=== PATIENT | male | born 1980 | race Caucasian/White ===

== ENCOUNTER → 2020-03-12 10:01 | Outpatient (CLI) | payer OTHER, SELFPAY ==
[2020-03-14 09:33] LABS: HIV - WCH Non-Reactive (Nonreactive); Hepatitis B Surface Antigen Non-Reactive (Nonreactive); Hepatitis C Antibody Non-Reactive (Nonreactive)
[2020-03-17 04:30] LABS: Rapid Plasmin Reagin (RPR) NONREACTIVE (NONREACTIVE)
== END ==
PROVIDERS: Referring Provider Obstetrics & Gynecology Reproductive Endocrinology; Visit Provider Obstetrics & Gynecology Reproductive Endocrinology
DX: Z11.59 Encounter for screening for other viral diseases (principal); Z11.3 Encounter for screening for infections with a predominantly sexual mode of transmission; Z11.8 Encounter for screening for other infectious and parasitic diseases
CPT/HCPCS: 36415; 86592; 86703; 86803; 87340

== ENCOUNTER 2024-10-16 07:22 | Day surgery (SDC) | payer OTHER, SELFPAY ==
[2024-10-16] VITALS (8 sets, daily range): BP systolic 106–132; BP diastolic 71–86; PULSE 72–85; RESP 16; TEMP 36.3–36.4; O2SAT 95–99; BMI 33.5
--- NOTE | 2024-10-16 08:02 | PCM.PRE.AN2 ---
ASA Classification* ASA Classification ASA Classification: 2 Assessment & Plan Anesthesia* Anesthesia Assessment Anesthesia Assessment: Discussed sedation and/or anesthesia options, risks, benefits, and alternatives with patient/parents/legal guardian/POA. Questions invited. The patient/parents/legal guardian/POA seems to understand and agrees to proceed with anesthesia plan. Reviewed the physical assessment, medical history, allergy history and patient home medications list prior to surgery/procedure/anesthetic and documented any changes. Performed airway and anesthesia risk assessments. Anesthesia Type Anesthesia Type: MAC Anesthesia Focused Assessment* Temperature: 97.3 F Pulse Rate: 72 Blood Pressure: 132/86 Respiratory Rate: 16 Pulse Ox: 99 Airway Assessment Mouth opens: >3 cm Mallampati Score: II Focused Labs Anesthesia Preop lab: CBC CHEMISTRY COAG Pre-Assessment Diagnosis/Proposed Procedure Planned Operative Procedure(s): COLONOSCOPY Anesthesia History Anesthesia History - media account executive: Anesthesia History - media account executive Hx Hospitalization No 10/09/24 11:27 Any Problems With Anesthesia No 10/09/24 11:27 Cholinesterase deficiency No 10/09/24 11:27 You/Your Family Experience No 10/09/24 11:27 fever (hyperthermia) with Relationship Recent Exposure to Contagious No 10/16/24 07:44 Disease Does patient have nerve No 10/09/24 11:27 stimulator Patient instructed to have device shut off --Does patient have Pacemaker No 10/16/24 07:44 or ICD? When Was Last Pacemaker Check QUESTION #4 FULL TEXT: You/Your Family Experience fever (hyperthermia) with Anesthesia Last Oral Intake Last Oral intake: Last Oral Intake NPO since 04:45 10/16/24 07:44 Meds taken in AM with sips of No 10/16/24 07:44 water? Meds patient instructed to take am of surgery PONV PONV - media account executive: PONV - media account executive Female No 10/09/24 11:27 HX of Motion Sickness No 10/09/24 11:27 HX of N/V After Surgery No 10/09/24 11:27 Non-Smoker Yes 10/09/24 11:27 Duration of Surgery greater No 10/09/24 11:27 than 60 minutes Number of Risk Factors 1 10/09/24 11:27 PONV Score Low Risk 10/09/24 11:27 Height & Weight Height & Weight: Anesthesia: Height & Weight Height 5 ft 11 in 10/16/24 07:44 Weight: 109 kg 10/16/24 07:44 Body Mass Index (BMI) 33.5 10/16/24 07:44 Respiratory Assessment Respiratory Assessment - media account executive: Respiratory Tract Infection Hx - media account executive Hx Respiratory Tract Infection No 10/09/24 11:27 STOP Sleep Apnea STOP Sleep Apnea - media account executive: STOP Sleep Apnea - media account executive Hx Hypertension Yes: per pt, controlled on 10/09/24 11:27 meds Hx Sleep Apnea No 10/09/24 11:27 CPAP BIPAP Do you snore loudly (louder No 10/09/24 11:27 than talking or can be heard Do you often feel tired/ No 10/09/24 11:27 fatigued/ sleepy during daytime? Has anyone observed you stop No 10/09/24 11:27 breathing during sleep? STOP Results Negative 10/09/24 11:27 QUESTION #5 FULL TEXT : Do you snore loudly (louder than talking or can be heard through closed doors)? Tobacco Use History Tobacco Use History - media account executive: Tobacco Use History - media account executive Tobacco Use Smoking Status Never smoker 10/09/24 11:27 Hx Tobacco Use No 10/09/24 11:27 Years Smoking Packs Smoked per Day Smoking Cessation Date was within the last 15 years Hx Smoking Cessation Date Hx Smoking Cessation Counseling Hematologic Medial History Hematologic Hx - media account executive: Hematologic Medical Hx - electronic commerce specialist Hx of Blood Transfusion No 10/09/24 11:27 Hx of Transfusion in last 3 No 10/09/24 11:27 Months Date of Last Transfusion (if within last 3 months) Ever experience any problems No 10/09/24 11:27 with transfusion(s)? Specify any problems Hx of Preganancy in last 3 N/A 10/09/24 11:27 Months Nurse Filling Out Transfusion MGRIFFITH 10/09/24 11:27 & Questions: Date: 10/09/24 10/09/24 11:27 Time: 11:29 10/09/24 11:27 Patient unable to answer at this time (ie. confused, unrespo /Reproduction History /Reproductive History - media account executive: /Reproductive Hx- media account executive Hx Now Gestational Age (in weeks): EDC: Hx Hx Para Hx Section [facility] Medical History High cholesterol Non-smoker History of stress test Type 2 diabetes mellitus HTN (hypertension) Home Medications ?Medication ?Instructions ?Recorded ?Last Taken ?Type cholecalciferol (vitamin D3) 1,250 1,250 mcg PO QWEEK 07/31/24 Unknown History mcg (50,000 unit) capsule lisinopril 20 mg tablet 20 mg PO QDAY 07/31/24 Unknown History metformin 500 mg tablet 500 mg PO BID 07/31/24 10/15/24 History rosuvastatin 10 mg tablet 10 mg PO QDAY 07/31/24 Unknown History tirzepatide 7.5 mg/0.5 mL 7.5 mg subcut QWEEK 10/09/24 10/04/24 History subcutaneous pen injector (Mounjaro) Allergy/AdvReac Type Severity Reaction Status Date / Time No Known Allergies Allergy Verified 10/16/24 07:43 Family History Father Colon polyps, Onset Age: 60 Surgical History History of tonsillectomy Social History household members: spouse current occupational status: employed Smoking Status: Never smoker Review of Systems (Anesthesia) ROS Narrative System reviewed and no additional complaints, except as documented.
--- NOTE | 2024-10-16 08:13 | HP.PCM_ITS ---
HPI - General HPI Narrative LUIS ALFREDO RED, is a 44 M who presents for screening colonoscopy. He has no history of blood in the stool or abdominal pain. He denies family history of colon cancer although his father does have polyps. [facility] Medical History High cholesterol Non-smoker History of stress test Type 2 diabetes mellitus HTN (hypertension) Home Medications ?Medication ?Instructions ?Recorded ?Last Taken ?Type cholecalciferol (vitamin D3) 1,250 1,250 mcg PO QWEEK 07/31/24 Unknown History mcg (50,000 unit) capsule lisinopril 20 mg tablet 20 mg PO QDAY 07/31/24 Unkno wn History metformin 500 mg tablet 500 mg PO BID 07/31/2410/15 History rosuvastatin 10 mg tablet 10 mg PO QDAY 07/31/24 Unkno wn History tirzepatide 7.5 mg/0.5 mL 7.5 mg subcut QWEEK 10/09/24 10/04/24 History subcutaneous pen injector (Mounjaro) Allergy/AdvReac Type Severity Reaction Status Date / Time No Known Allergies Allergy Verified 10/16/24 07:43 Family History Father Colon polyps, Onset Age: 60 Surgical History History of tonsillectomy Social History household members: spouse current occupational status: employed Smoking Status: Never smoker Past Medical/Surgical History Planned Operation Planned Operative Procedure(s): COLONOSCOPY Previous Hospitalizations/Surgeries HX Hospitalizations: No Any Problems With Anesthesia: No You/Your Family Experience Fever (Hyperthermia) With Anes: No Cholinesterase deficiency: No Cardiovascular Hx of Irregular Heartbeat and/or Afib: No Hx Heart Attack: No Hx Congestive Heart Failure: No Hx Hypertension: Yes (per pt, controlled on meds) Hx Pacemaker: No Respiratory Hx Chronic Obstructive Pulmonary Disease (COPD): No Hx Asthma: No Hx Emphysema: No Hx Sleep Apnea: No Hx Respiratory Tract Infection/Cold (presently): No Do You Snore Loudly (louder than talking or can be heard): No Do You Often Feel Tired/ Fatigued/ Sleepy Dring Daytime?: No Has Anyone Observed You Stop Breathing During Sleep?: No Result (for STOP score): Negative Smoking Status: Never smoker Gastrointestinal Hx Ulcer: No Neurological Hx Seizures: No Hx Head/Neck Injury: Yes Hx Headaches: No Hx Back Injury/Pain: No Does patient have nerve stimulator: No Miscellaneous Recent Exposure to Contagious Disease: No Allergies No Known Allergies Allergy (Verified 10/16/24 07:43) Discharge Is Pt Admitted From a Jail, or a Correction: No Who Could Help: family After D/C, Where Do you Plan to Go: Return Home Vital Signs Vital Signs Vital Signs: 10/16/24 07:44 10/16/24 07:44 10/16/24 08:02 Temperature 97.3 F L 97.3 F L Temperature Source Temporal Pulse Rate 72 72 Respiratory Rate 16 16 Respiratory Pattern Normal Blood Pressure 132/86 H 132/86 H Blood Pressure Mean 101 Blood Pressure Source Monitor Blood Pressure Position Semi-Fowlers Blood Pressure Location Right Arm Pulse Ox 99 99 Oxygen Delivery Method Room Air Weight Weight: 240 lb 4.862 oz Body Mass Index (BMI) 33.5 Physical Exam Const alert and oriented x3 HEENT normocephalic Eyes PERRL Resp normal respiratory effort and normal air movement Cardio regular rate and regular rhythm GI soft to palpation, non-tender and non-distended Extremity normal to inspection Assessment & Plan Assessment/Plan (1) Encounter for screening for malignant neoplasm of colon: PLAN: I explained endoscopy in detail to the patient. I explained the risks including but not limited to stroke or heart attack with anesthesia, perforation of the GI tract, bleeding, infection. I explained that any of these could necessitate further emergency surgery. The patient understands and all questions were answered sufficiently. The patient wishes to proceed with proce dure. Esequiel Díaz MD Pager: [facility] [address] [place] [address], [address] [place] [address] Office: Surgery Risks - Colonoscopy Risks Include but are not Limited To: Risks include but are not limited to: Bleeding, perforation requiring further surgery, inability to complete colonoscopy requiring barium enema.
[2024-10-16 08:16] LABS: Bedside Glucose 102 mg/dL (74-106)
--- NOTE | 2024-10-16 08:45 | COLBX_PTH ---
PATIENT: LUIS ALFREDO RED LOC: EN U#:[id number] AGE/SX: 44/M ROOM: RE10/16/[address]: Dr. Esequiel Díaz MD : 1980 BED: DIS: 10/16/2024 SPEC #: [id number] RECD: 10/16/24 13:46 STATUS: JOSE RING #: [id number] HEAVEN: 10/16/24 08:[address]: Esequiel Díaz DEPT: SURGICAL PATHOLOGY RECD BY: Aravind Louie Tissues: A - Sigmoid colon biopsy Procedures: Surgery Specimen Level IV HEADER OPERATION: Colonoscopy, polypectomy PRE-OP DIAGNOSIS: Encounter for screening for malignant neoplasm of colon TISSUE SUBMITTED: A- Sigmoid colon polyp x2 MICROSCOPIC DIAGNOSIS A. Sigmoid colon, polyp x 2, biopsy: * Hyperplastic polyps MICROSCOPIC DESCRIPTION Slides are reviewed. GROSS DESCRIPTION A. Received in formalin in a container labeled with the patient's name, date of , and sigmoid colon polyp x 2 are 2 rubio-pink and polypoid pieces of mucosal tissue, each measuring 0.3 x 0.3 x 0.2 cm. The resection margins are inked black and green. Each are submitted whole in A1. [facility] 10/20/2024 CPT:42804
--- NOTE | 2024-10-16 08:56 | PCM.POST.ANE ---
Anesthesia: Postop Eval I Current Vital Signs Temperature: 97.6 F Pulse Rate: 84 Blood Pressure: 114/71 Respiratory Rate: 16 Pulse Ox: 96 Oxygen Delivery Method: Room Air Assessment Airway patent: Yes Spontaneous unlabored respirations: Yes Mental status: Asleep nausea: No Vomiting: No Anesthesia Complication: No Fluid Hydration Crystalloid volume administer (ml): 55 Total IV fluid infused: 55 Progress Note Anesthesia document: Postop Eval 1 completed: Yes
--- NOTE | 2024-10-16 09:03 | OP.CCLET_ITS ---
10/16/2024 Unknown Referring Re : Colonoscopy procedure for Erich Fernández Dear Dr. Baptiste This procedure was performed on Wednesday, October 16, 2024. My impressions and recommendations are as follows: Impressions : - Two small polyps in the sigmoid colon, removed with a hot snare. Resected and retrieved. - The examination was otherwise normal on direct and retroflexion views. Recommendations : - Discharge patient to home. - Resume previous diet. - Continue present medications. - Await pathology results. - Repeat colonoscopy in 5 years for surveillance. My findings are described in the full procedure note, which is enclosed. If I can be of further assistance, please feel free to contact me at Doctor phone number(s): , Work: . Sincerely, Esequiel Díaz MD 10/16/2024 9:03:03 AM This report has been signed electronically.
--- NOTE | 2024-10-16 09:03 | OP.COLON_ITS ---
Patient Name: Erich Fernández Procedure Date: 10/16/2024 8:23 AM Date of : 1980 Age: 44 Procedure: Colonoscopy Indications: Screening for colorectal malignant neoplasm Providers: Esequiel Díaz MD Referring MD: Unknown Referring Medicines: Propofol per Anesthesia Patient Profile: This is a 44 year old male. Refer to note in patient chart for documentation of history and physical. Last Colonoscopy: none. The patient's first colonoscopy is today. Complications: No immediate complications. Procedure: Pre-Anesthesia Assessment: - Prior to the procedure, a History and Physical was performed, and patient medications and allergies were reviewed. The patient's tolerance of previous anesthesia was also reviewed. The risks and benefits of the procedure and the sedation options and risks were discussed with the patient. All questions were answered, and informed consent was obtained. Prior Anticoagulants: The patient has taken no anticoagulant or antiplatelet agents. After reviewing the risks and benefits, the patient was deemed in satisfactory condition to undergo the procedure. After I obtained informed consent, the scope was passed under direct vision. Throughout the procedure, the patient's blood pressure, pulse, and oxygen saturations were monitored continuously. The Colonoscope was introduced through the anus and advanced to the terminal ileum, with identification of the appendiceal orifice and IC valve. The colonoscopy was performed without difficulty. The patient tolerated the procedure well. The quality of the bowel preparation was good. The ileocecal valve, appendiceal orifice, and rectum were photographed. Scope In: 8:33:16 AM Scope Withdrawal Time 0 hours 7 minutes 36 seconds Scope Out: 8:44:09 AM Total Procedure Duration Time 0 hours 10 minutes 53 seconds Findings: Two polyps were found in the sigmoid colon. The polyps were small in size. These polyps were removed with a hot snare. Resection and retrieval were complete. The exam was otherwise without abnormality on direct and retroflexion views. Impression: - Two small polyps in the sigmoid colon, removed with a hot snare. Resected and retrieved. - The examination was otherwise normal on direct and retroflexion views. Recommendation: - Discharge patient to home. - Resume previous diet. - Continue present medications. - Await pathology results. - Repeat colonoscopy in 5 years for surveillance. Procedure Code(s): --- Professional --- 75715, 33, Colonoscopy, flexible; with removal of tumor(s), polyp(s), or other lesion(s) by snare technique Diagnosis Code(s): --- Professional --- Z12.11, Encounter for screening for malignant neoplasm of colon D12.5, Benign neoplasm of sigmoid colon CPT copyright 2021 [employer]. All rights reserved. The codes documented in this report are preliminary and upon physician coder review may be revised to meet current compliance requirements. Esequiel Díaz MD 10/16/2024 9:03:03 AM This report has been signed electronically. Number of Addenda: 0 Note Initiated On: 10/16/2024 8:23 AM
--- NOTE | 2024-10-16 09:08 | PCM.POSTANE2 ---
Anesthesia Postop Eval I Sum Postop Eval Completion status Anesthesia document: Postop Eval 1 completed: Yes Anesthesia Postop Eval I Summary Anesthesia Postop Eval I Summary: Anesthesia Postop Eval I: Assessment Summary Airway patent Yes 10/16/24 08:56 [email or web address] Spontaneous unlabored Yes 10/16/24 08:56 [email or web address] respirations Mental status Asleep 10/16/24 08:56 [email or web address] nausea No 10/16/24 08:56 [email or web address] Vomiting No 10/16/24 08:56 [email or web address] Anesthesia Postop Eval I: Fluid Summary Crystalloid volume administer 55 10/16/24 08:56 [email or web address] (ml) Colloids volume administered ( ml) Blood Product volume administered (ml) Total IV fluid infused 55 10/16/24 08:56 [email or web address] Anesthesia Postop Eval I: Summary Notes Anesthesia Complication No 10/16/24 08:56 [email or web address] Anesthesia Complication Comment: Post-operative progress note Anesthesia: Postop Eval II Evaluation Mental status: Awake Pain Level: 0 nausea: No Vomiting: No
== END 2024-10-16 09:26 | disposition home or self-care (01) ==
LOC: EN 07:26 → AC 07:28
PROVIDERS: Visit Provider Surgery
PROC: 0DJD8ZZ Inspection of Lower Intestinal Tract, Via Natural or Artificial Opening Endoscopic (ICD-10-PCS; CPT 45378; principal; 2024-10-16 08:40)
DX: Z12.11 Encounter for screening for malignant neoplasm of colon (principal); E11.9 Type 2 diabetes mellitus without complications; K63.5 Polyp of colon; I10 Essential (primary) hypertension; Z79.84 Long term (current) use of oral hypoglycemic drugs; E78.00 Pure hypercholesterolemia, unspecified; Z79.85 Long-term (current) use of injectable non-insulin antidiabetic drugs; Z79.899 Other long term (current) drug therapy
CPT/HCPCS: 45385; 82962; 88305; J2405